=== PATIENT | female | born 1960 | race Caucasian/White ===

== ENCOUNTER 2018-07-11 08:57 | Emergency (ER) | payer OTHER ==
[~2018-07-11] VITALS: Ht 154.9 cm; Wt 70.8 kg
[~2018-07-11 08:57] MED LIST: ATENOLOL25 GM; CIPRO500 MG PO; GLUCOPHAGE XR500 MG; TAMS0.4C PO; TIROSINT25 MCG; URETRON D-S TAB1 TAB PO
== END 2018-07-11 13:44 ==
LOC: ER 08:57
DX: R51 Headache (principal)

== ENCOUNTER 2025-01-18 10:20 | Outpatient (CLI) | payer OTHER | END 2025-01-18 10:24 | disposition home or self-care (01) | LOC: RAD 10:20 | PROVIDERS: ATTEND Specialist | DX: J45.998 Other asthma (principal); R31.9 Hematuria, unspecified; Z87.442 Personal history of urinary calculi; M75.101 Unspecified rotator cuff tear or rupture of right shoulder, not specified as traumatic; N60.39 Fibrosclerosis of unspecified breast; Z12.31 Encounter for screening mammogram for malignant neoplasm of breast ==